=== PATIENT | male | born 1985 | race Caucasian/White ===

== ENCOUNTER 2017-06-02 20:47 | Day surgery (SDC) | payer BC, OTHER ==
[2017-06-02] MEDS ORDERED: Ondansetron 4 MG/2 ML SDV IVPUSH ONE (21:15)
[2017-06-02] MEDS ORDERED: Sodium Chloride 0.9% 1,000 ML IV ONE (21:15)
[2017-06-02] MEDS ORDERED: Ketorolac 30 MG/ML SDV IVPUSH ONE (21:15)
--- NOTE | 2017-06-02 21:20 | EDM.PDOC ---
Addendum entered and electronically signed by Donna Bianchi MD 06/02/17 23: 28: Patient states that his allergy to penicillin for his mother is that he gets hives diarrhea and stomach upset. Dr. Mota would like him to receive Flagyl and Cipro which I ordered. Original Note: <Donna Bianchi - Last Filed: 06/02/17 23:19> ED HPI GENERAL MEDICAL PROBLEM - General Chief Complaint: Abdominal Pain Stated Complaint: STOMACH PAIN Time Seen by Provider: 06/02/17 21:10 - History of Present Illness INITIAL COMMENTS - FREE TEXT/NARRATIVE: This is Dr. Bianchi dictating an addendum note as I assumed care of this patient at 2200 hrs. The patient tells me the pain is mostly localized in the right upper quadrant and does not radiate to the flank. He says that he ate chicken [employer] tonight with cheese which made the pain more severe. He said the pain did come on very suddenly and was not gradual. When asked about prior food intolerances he says he can usually eat whatever he wants and has never had this discomfort. He says that the pain is much improved after the medication but it is still there and dull fashion. He doesn't feel nauseated and has no chest pain. He has not had any recent flulike symptoms. He has had normal urine output and normal stools. On examination he has some mild tenderness on deep palpation in the right upper quadrant but not in the epigastrium or the left upper quadrant and there is no right lower quadrant tenderness. We are currently awaiting his CT scan results and I will discuss them with him and the care plan once they're available. CT scan results were discussed with the patient and significant other at bedside as well as our surgeon documentation billing clerk Dr. Mota at [id number]. He is aware that he has appendicitis and that the surgeon is coming in to discuss the plan with him. Dr Mota wanted us to give a dose of Zosyn and he is stating that he has some kind of allergy to it but he does not recall the reaction as he was a small child and his mother told him not to take it. He is currently contacting her to determine what that reaction is. I will hold antibiotics until we get that information and Dr. Mota is here. We'll plan on admitting to same day surgery for appendectomy. 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 [No Known Home Meds] 10/20/13 [History] Course - Vital Signs Last Recorded V/S: Last Vital Signs Temp 36.6 C 06/03/17 08:00 Pulse 85 06/03/17 08:00 Resp 20 06/03/17 08:00 BP 138/70 06/03/17 08:00 Pulse Ox 92 L 06/03/17 08:00 - Orders/Labs/Meds Orders: Active Orders 24 hr Category Date Time Status Patient Status [ADT] Routine ADT 06/02/17 23:47 Active Antiembolic Devices [RC] PER UNIT ROUTINE Care 06/02/17 23:49 Active RT Incentive Spirometry [RC] ASDIRECTED Care 06/02/17 23:47 Active Vital Signs [RC] Q4H Care 06/03/17 01:08 Active Regular Diet [DIET] Diet 06/03/17 Breakfast Active Abdomen Pelvis w Cont [CT] Stat Exams 06/02/17 21:15 Taken Acetaminophen/oxyCODONE [Percocet 325-5 MG] Med 06/03/17 02:51 Active 2 tab PO Q4H PRN HYDROmorphone [Dilaudid] Med 06/02/17 23:50 Active 1 mg IVPUSH Q2H PRN Ondansetron [Zofran] Med 06/03/17 02:52 Active 8 mg IVPUSH Q8H PRN Sodium Chloride 0.9% [Saline Flush] Med 06/02/17 23:47 Active 10 ml FLUSH ASDIRECTED PRN Sodium Chloride 0.9% [Saline Flush] Med 06/02/17 23:47 Active 2.5 ml FLUSH ASDIRECTED PRN Peripheral IV Insertion Adult [OM.PC] Routine Oth 06/02/17 23:47 Ordered Sequential Compression Device [OM.PC] Routine Oth 06/02/17 23:47 Ordered Resuscitation Status Routine Resus Stat 06/02/17 23:47 Ordered Medication Orders Hydromorphone HCl (Dilaudid) 1 mg IVPUSH Q2H PRN PRN Reason: Abdominal Pain Ondansetron HCl (Zofran) 8 mg IVPUSH Q8H PRN PRN Reason: Nausea/Vomiting Oxycodone/Acetaminophen (Percocet 325-5 Mg) 2 tab PO Q4H PRN PRN Reason: Abdominal Pain Last Admin: 06/03/17 07:40 Dose: 2 tab Sodium Chloride (Saline Flush) 10 ml FLUSH ASDIRECTED PRN PRN Reason: Keep Vein Open Sodium Chloride (Saline Flush) 2.5 ml FLUSH ASDIRECTED PRN PRN Reason: Keep Vein Open Labs: Laboratory Tests 06/02/17 06/02/17 06/02/17 Range/Units 21:30 21:30 22:50 WBC 17.57 H (4.0-11.0) K/uL RBC 5.25 (4.50-5.90) M/uL Hgb 16.0 (13.0-17.0) g/dL Hct 46.1 (38.0-50.0) % MCV 87.8 (80.0-98.0) fL MCH 30.5 (27.0-32.0) pg MCHC 34.7 (31.0-37.0) g/dL RDW Std Deviation 41.7 (28.0-62.0) fl RDW Coeff of [place] 13 (11.0-15.0) % Plt Count 239 (150-400) K/uL MPV 10.80 (7.40-12.00) fL Neut % (Auto) 80.3 H (48.0-80.0) % Lymph % (Auto) 12.1 L (16.0-40.0) % [place] % (Auto) 6.9 (0.0-15.0) % Eos % (Auto) 0.6 (0.0-7.0) % Baso % (Auto) 0.1 (0.0-1.5) % Neut # (Auto) 14.1 H (1.4-5.7) K/uL Lymph # (Auto) 2.1 (0.6-2.4) K/uL [place] # (Auto) 1.2 H (0.0-0.8) K/uL Eos # (Auto) 0.1 (0.0-0.7) K/uL Baso # (Auto) 0.0 (0.0-0.1) K/uL Nucleated RBC % 0.0 /100WBC Nucleated RBCs # 0 K/uL Sodium 137 (136-146) mmol/L Potassium 4.2 (3.5-5.1) mmol/L Chloride 106 (98-110) mmol/L Carbon Dioxide 22 (21-31) mmol/L BUN 12 (6.0-23.0) mg/dL Creatinine 0.9 (0.6-1.5) mg/dL Est Cr Clr Drug Dosing 132.93 mL/min Estimated GFR (MDRD) > 60.0 ml/min Glucose 115 H (60-110) mg/dL Calcium 9.2 (8.8-10.8) mg/dL Total Bilirubin 0.8 (0.1-1.5) mg/dL AST 21 (5-40) IU/L ALT 38 (8-54) IU/L Alkaline Phosphatase 74 (40-150) Total Protein 7.7 (6.0-8.0) g/dL Albumin 4.4 (3.5-5.0) g/dL Globulin 3.3 (2.0-3.5) g/dL Albumin/Globulin Ratio 1.3 (1.3-2.8) Amylase 36 (10-90) U/L Lipase 25 (7-80) U/L Urine Color YELLOW Urine Appearance CLEAR Urine pH 6.0 (5.0-8.0) Ur Specific [place] 1.010 (1.001-1.035) Urine Protein NEGATIVE (NEGATIVE) mg/dL Urine Glucose (UA) NEGATIVE (NEGATIVE) mg/dL Urine Ketones NEGATIVE (NEGATIVE) mg/dL Urine Occult Blood NEGATIVE (NEGATIVE) Urine Nitrite NEGATIVE (NEGATIVE) Urine Bilirubin NEGATIVE (NEGATIVE) Urine Urobilinogen 0.2 (<2.0) EU/dL Ur Leukocyte Esterase NEGATIVE (NEGATIVE) Urine RBC NONE SEEN (0-2/HPF) Urine WBC 0-1 (0-5/HPF) Ur Epithelial Cells NOT SEEN (NONE-FEW) Urine Bacteria RARE (NEGATIVE) Meds: Medications Generic Name Dose Route Start Last Admin Trade Name Freq PRN Reason Stop Dose Admin Hydromorphone HCl 1 mg 06/02/17 23:50 Dilaudid IVPUSH Q2H PRN Abdominal Pain Ondansetron HCl 8 mg 06/03/17 02:52 Zofran IVPUSH Q8H PRN Nausea/Vomiting Oxycodone/Acetaminophen 2 tab 06/03/17 02:51 06/03/17 07:40 Percocet 325-5 Mg PO 2 tab Q4H PRN Administration Abdominal Pain Sodium Chloride 10 ml 06/02/17 23:47 Saline Flush FLUSH ASDIRECTED PRN Keep Vein Open Sodium Chloride 2.5 ml 06/02/17 23:47 Saline Flush FLUSH ASDIRECTED PRN Keep Vein Open Discontinued Medications Generic Name Dose Route Start Last Admin Trade Name Freq PRN Reason Stop Dose Admin Bupivacaine HCl Confirm 06/03/17 00:15 Sensorcaine-Mpf 0.5% Administered 06/03/17 00:16 Dose 10 ml .ROUTE .STK-MED ONE Diphenhydramine HCl Confirm 06/03/17 00:12 Benadryl Administered 06/03/17 00:13 Dose 50 mg .ROUTE .STK-MED ONE Fentanyl Confirm 06/03/17 00:07 Sublimaze Administered 06/03/17 00:08 Dose 250 mcg .ROUTE .STK-MED ONE Fentanyl 50 mcg 06/03/17 01:08 Sublimaze IVPUSH 06/03/17 05:00 Q5M PRN Pain (severe 7-10) Fentanyl Confirm 06/03/17 01:17 Sublimaze Administered 06/03/17 01:18 Dose 100 mcg .ROUTE .STK-MED ONE Fentanyl Confirm 06/03/17 02:12 Sublimaze Administered 06/03/17 02:13 Dose 100 mcg .ROUTE .STK-MED ONE Glycopyrrolate Confirm 06/03/17 00:12 Administered 06/03/17 00:13 Dose 1 mg .ROUTE .STK-MED ONE Sodium Chloride 1,000 mls @ 999 mls/hr 06/02/17 21:15 06/02/17 21:34 Normal Saline IV 06/02/17 22:15 999 mls/hr STAT ONE Administration Ciprofloxacin/Dextrose 400 mg/ 200 mls @ 200 mls/hr 06/02/17 23:28 06/02/17 23:37 Premix IV 06/03/17 00:27 200 mls/hr ONETIME ONE Administration Metronidazole 500 mg/ Premix 100 mls @ 100 mls/hr 06/02/17 23:27 06/02/17 23: 47 IV 06/03/17 00:08 Not Given ONETIME ONE Lactated Ringer's 1,000 mls @ 125 mls/hr 06/02/17 23:45 06/02/17 23:54 Ringers, Lactated IV 125 mls/hr ASDIRECTED [place] Administration Levofloxacin/Dextrose 750 mg/ 150 mls @ 100 mls/hr 06/02/17 23:49 06/02/17 23 :58 Premix IV 06/03/17 01:18 100 mls/hr ONETIME ONE Administration Iopamidol 100 ml 06/02/17 22:54 06/02/17 23:02 Isovue Multipack-370 (76%) IVPUSH 06/02/17 22:55 100 ml ONETIME STA Administration Ketorolac Tromethamine 30 mg 06/02/17 21:15 06/02/17 21:37 Toradol IVPUSH 06/02/17 21:16 30 mg ONETIME ONE Administration Ketorolac Tromethamine Confirm 06/03/17 00:12 Toradol Administered 06/03/17 00:13 Dose 30 mg .ROUTE .STK-MED ONE Lidocaine Confirm 06/03/17 00:12 Xylocaine-Mpf 2% Administered 06/03/17 00:13 Dose 5 ml .ROUTE .STK-MED ONE Midazolam HCl Confirm 06/03/17 00:24 Versed 1 Mg/Ml Administered 06/03/17 00:25 Dose 2 mg .ROUTE .STK-MED ONE Morphine Sulfate 4 mg 06/02/17 21:54 06/02/17 22:04 Morphine IVPUSH 06/02/17 21:55 4 mg ONETIME ONE Administration Neostigmine Methylsulfate Confirm 06/03/17 00:12 Neostigmine Administered 06/03/17 00:13 Dose 5 mg .ROUTE .STK-MED ONE Ondansetron HCl 8 mg 06/02/17 21:15 06/02/17 21:35 Zofran IVPUSH 06/02/17 21:16 8 mg ONETIME ONE Administration Ondansetron HCl Confirm 06/03/17 00:12 Zofran Administered 06/03/17 00:13 Dose 4 mg .ROUTE .STK-MED ONE Propofol Confirm 06/03/17 00:07 Diprivan 20 Ml Administered 06/03/17 00:08 Dose 200 mg .ROUTE .STK-MED ONE Propofol Confirm 06/03/17 00:44 Diprivan 20 Ml Administered 06/03/17 00:45 Dose 200 mg .ROUTE .STK-MED ONE Rocuronium [place] Confirm 06/03/17 00:12 Zemuron Administered 06/03/17 00:13 Dose 100 mg .ROUTE .STK-MED ONE Succinylcholine Chloride Confirm 06/03/17 00:12 Succinylcholine In Ns Pf Administered 06/03/17 00:13 Dose 200 mg .ROUTE .STK-MED ONE Departure - Departure Time of Disposition: 23:20 Disposition: Still A Patient 30 Condition: Good Clinical Impression: Appendicitis Qualifiers: Appendicitis type: acute appendicitis Acute appendicitis type: unspecified acute appendicitis type Qualified Code(s): K35.80 - Unspecified acute appendicitis - Discharge Information - My Orders Last 24 Hours: My Active Orders 06/02/17 21:15 Abdomen Pelvis w Cont [CT] Stat - Assessment/Plan Last 24 Hours: My Active Orders 06/02/17 21:15 Abdomen Pelvis w Cont [CT] Stat <Brigette Wren E - Last Filed: 06/03/17 10:15> ED HPI GENERAL MEDICAL PROBLEM - General Source of Information: Reports: Patient History Limitations: Reports: No Limitations - History of Present Illness INITIAL COMMENTS - FREE TEXT/NARRATIVE: HISTORY AND PHYSICAL: History of present illness: Patient is a 31-year-old male who presents to the emergency room with complaints of abdominal pain, diaphoresis, and nausea. He states the symptoms started around noon today and just have not resolved. Pain started radiating across the mid abdomen left and right. As time has gone on its more concentrated in the right upper mid quadrant. He states that when he moves or takes a deep breath it is a sharp stabbing pain. Reports that he has had normal bowel movements, denies constipation. Denies blood in his stools. Denies dysuria or difficulty starting his stream. Denies any chest pain, shortness of breath, fever or chills. Review of systems: As per history of present illness and below otherwise all systems reviewed and negative. Past medical history: As per history of present illness and as reviewed below otherwise noncontributory. Surgical history: As per history of present illness and as reviewed below otherwise noncontributory. Social history: No reported history of drug or alcohol abuse. Family history: As per history of present illness and as reviewed below otherwise noncontributory. Physical exam: Gen.: Nontoxic appearing 31-year-old male. Alert and oriented. Appears in no acute distress. HEENT: Atraumatic, normocephalic, pupils reactive, negative for conjunctival pallor or scleral icterus, mucous membranes moist, throat clear, neck supple, nontender, trachea midline. Lungs: Clear to auscultation, breath sounds equal bilaterally, chest nontender. Heart: S1S2, regular, negative for clicks, rubs, or JVD. Abdomen: Soft, obese, nondistended, right upper quadrant/mid quadrant tenderness , no rebound tenderness. Negative for masses or hepatosplenomegaly. Negative for costovertebral tenderness. Pelvis: Stable nontender. Genitourinary: Deferred. Rectal: Deferred. Extremities: Atraumatic, moves all extremities per self negative for cords or calf pain. Neurovascular unremarkable. Skin: Diaphoretic. Intact with no overt lesions or rashes. Neuro: Awake, alert, oriented. Cranial nerves II through XII unremarkable. Cerebellum unremarkable. Motor and sensory unremarkable throughout. Exam nonfocal. She did not find any relief with the Toradol. Morphine was ordered at this time. I passed this patient on to Dr. Bianchi at 2200. She is aware of this case. Diagnostics: CBC, CMP, amylase, lipase, UA, CT abdomen and pelvis Therapeutics: IV fluid, Zofran, Toradol Impression: Abdominal pain Appendicitis Plan: Admitted under Dr. Mota Definitive disposition and diagnosis as appropriate pending reevaluation and review of above. Onset: Today Duration: Hour(s): Location: Reports: Abdomen Right Lower Abdomen Pain Score (Numeric/FACES): 6 Past Medical History - Past Health History Medical/Surgical History: Denies Medical/Surgical History Social & Family History - Tobacco Use Second Hand Smoke Exposure: No - Alcohol Use Days Per Week of Alcohol Use: 1 Number of Drinks Per Day: 3 Total Drinks Per Week: 3 - Recreational Drug Use Recreational Drug Use: No ED ROS GENERAL - Review of Systems Review Of Systems: ROS reveals no pertinent complaints other than HPI. ED EXAM, GI/ABD - Physical Exam Exam: See Below (See dictation) Course - Orders/Labs/Meds Labs: Laboratory Tests 06/02/17 06/02/17 06/02/17 Range/Units 21:30 21:30 22:50 WBC 17.57 H (4.0-11.0) K/uL RBC 5.25 (4.50-5.90) M/uL Hgb 16.0 (13.0-17.0) g/dL Hct 46.1 (38.0-50.0) % MCV 87.8 (80.0-98.0) fL MCH 30.5 (27.0-32.0) pg MCHC 34.7 (31.0-37.0) g/dL RDW Std Deviation 41.7 (28.0-62.0) fl RDW Coeff of [place] 13 (11.0-15.0) % Plt Count 239 (150-400) K/uL MPV 10.80 (7.40-12.00) fL Neut % (Auto) 80.3 H (48.0-80.0) % Lymph % (Auto) 12.1 L (16.0-40.0) % [place] % (Auto) 6.9 (0.0-15.0) % Eos % (Auto) 0.6 (0.0-7.0) % Baso % (Auto) 0.1 (0.0-1.5) % Neut # (Auto) 14.1 H (1.4-5.7) K/uL Lymph # (Auto) 2.1 (0.6-2.4) K/uL [place] # (Auto) 1.2 H (0.0-0.8) K/uL Eos # (Auto) 0.1 (0.0-0.7) K/uL Baso # (Auto) 0.0 (0.0-0.1) K/uL Nucleated RBC % 0.0 /100WBC Nucleated RBCs # 0 K/uL Sodium 137 (136-146) mmol/L Potassium 4.2 (3.5-5.1) mmol/L Chloride 106 (98-110) mmol/L Carbon Dioxide 22 (21-31) mmol/L BUN 12 (6.0-23.0) mg/dL Creatinine 0.9 (0.6-1.5) mg/dL Est Cr Clr Drug Dosing 132.93 mL/min Estimated GFR (MDRD) > 60.0 ml/min Glucose 115 H (60-110) mg/dL Calcium 9.2 (8.8-10.8) mg/dL Total Bilirubin 0.8 (0.1-1.5) mg/dL AST 21 (5-40) IU/L ALT 38 (8-54) IU/L Alkaline Phosphatase 74 (40-150) Total Protein 7.7 (6.0-8.0) g/dL Albumin 4.4 (3.5-5.0) g/dL Globulin 3.3 (2.0-3.5) g/dL Albumin/Globulin Ratio 1.3 (1.3-2.8) Amylase 36 (10-90) U/L Lipase 25 (7-80) U/L Urine Color YELLOW Urine Appearance CLEAR Urine pH 6.0 (5.0-8.0) Ur Specific [place] 1.010 (1.001-1.035) Urine Protein NEGATIVE (NEGATIVE) mg/dL Urine Glucose (UA) NEGATIVE (NEGATIVE) mg/dL Urine Ketones NEGATIVE (NEGATIVE) mg/dL Urine Occult Blood NEGATIVE (NEGATIVE) Urine Nitrite NEGATIVE (NEGATIVE) Urine Bilirubin NEGATIVE (NEGATIVE) Urine Urobilinogen 0.2 (<2.0) EU/dL Ur Leukocyte Esterase NEGATIVE (NEGATIVE) Urine RBC NONE SEEN (0-2/HPF) Urine WBC 0-1 (0-5/HPF) Ur Epithelial Cells NOT SEEN (NONE-FEW) Urine Bacteria RARE (NEGATIVE) Meds: Medications Generic Name Dose Route Start Last Admin Trade Name Freq PRN Reason Stop Dose Admin Hydromorphone HCl 1 mg 06/02/17 23:50 Dilaudid IVPUSH Q2H PRN Abdominal Pain Ondansetron HCl 8 mg 06/03/17 02:52 Zofran IVPUSH Q8H PRN Nausea/Vomiting Oxycodone/Acetaminophen 2 tab 06/03/17 02:51 06/03/17 07:40 Percocet 325-5 Mg PO 2 tab Q4H PRN Administration Abdominal Pain Sodium Chloride 10 ml 06/02/17 23:47 Saline Flush FLUSH ASDIRECTED PRN Keep Vein Open Sodium Chloride 2.5 ml 06/02/17 23:47 Saline Flush FLUSH ASDIRECTED PRN Keep Vein Open Discontinued Medications Generic Name Dose Route Start Last Admin Trade Name Ayse PRN Reason Stop Dose Admin Bupivacaine HCl Confirm 06/03/17 00:15 Sensorcaine-Mpf 0.5% Administered 06/03/17 00:16 Dose 10 ml .ROUTE .STK-MED ONE Diphenhydramine HCl Confirm 06/03/17 00:12 Benadryl Administered 06/03/17 00:13 Dose 50 mg .ROUTE .STK-MED ONE Fentanyl Confirm 06/03/17 00:07 Sublimaze Administered 06/03/17 00:08 Dose 250 mcg .ROUTE .STK-MED ONE Fentanyl 50 mcg 06/03/17 01:08 Sublimaze IVPUSH 06/03/17 05:00 Q5M PRN Pain (severe 7-10) Fentanyl Confirm 06/03/17 01:17 Sublimaze Administered 06/03/17 01:18 Dose 100 mcg .ROUTE .STK-MED ONE Fentanyl Confirm 06/03/17 02:12 Sublimaze Administered 06/03/17 02:13 Dose 100 mcg .ROUTE .STK-MED ONE Glycopyrrolate Confirm 06/03/17 00:12 Administered 06/03/17 00:13 Dose 1 mg .ROUTE .STK-MED ONE Sodium Chloride 1,000 mls @ 999 mls/hr 06/02/17 21:15 06/02/17 21:34 Normal Saline IV 06/02/17 22:15 999 mls/hr STAT ONE Administration Ciprofloxacin/Dextrose 400 mg/ 200 mls @ 200 mls/hr 06/02/17 23:28 06/02/17 23:37 Premix IV 06/03/17 00:27 200 mls/hr ONETIME ONE Administration Metronidazole 500 mg/ Premix 100 mls @ 100 mls/hr 06/02/17 23:27 06/02/17 23: 47 IV 06/03/17 00:08 Not Given ONETIME ONE Lactated Ringer's 1,000 mls @ 125 mls/hr 06/02/17 23:45 06/02/17 23:54 Ringers, Lactated IV 125 mls/hr ASDIRECTED [place] Administration Levofloxacin/Dextrose 750 mg/ 150 mls @ 100 mls/hr 06/02/17 23:49 06/02/17 23 :58 Premix IV 06/03/17 01:18 100 mls/hr ONETIME ONE Administration Iopamidol 100 ml 06/02/17 22:54 06/02/17 23:02 Isovue Multipack-370 (76%) IVPUSH 06/02/17 22:55 100 ml ONETIME STA Administration Ketorolac Tromethamine 30 mg 06/02/17 21:15 06/02/17 21:37 Toradol IVPUSH 06/02/17 21:16 30 mg ONETIME ONE Administration Ketorolac Tromethamine Confirm 06/03/17 00:12 Toradol Administered 06/03/17 00:13 Dose 30 mg .ROUTE .STK-MED ONE Lidocaine Confirm 06/03/17 00:12 Xylocaine-Mpf 2% Administered 06/03/17 00:13 Dose 5 ml .ROUTE .STK-MED ONE Midazolam HCl Confirm 06/03/17 00:24 Versed 1 Mg/Ml Administered 06/03/17 00:25 Dose 2 mg .ROUTE .STK-MED ONE Morphine Sulfate 4 mg 06/02/17 21:54 06/02/17 22:04 Morphine IVPUSH 06/02/17 21:55 4 mg ONETIME ONE Administration Neostigmine Methylsulfate Confirm 06/03/17 00:12 Neostigmine Administered 06/03/17 00:13 Dose 5 mg .ROUTE .STK-MED ONE Ondansetron HCl 8 mg 06/02/17 21:15 06/02/17 21:35 Zofran IVPUSH 06/02/17 21:16 8 mg ONETIME ONE Administration Ondansetron HCl Confirm 06/03/17 00:12 Zofran Administered 06/03/17 00:13 Dose 4 mg .ROUTE .STK-MED ONE Propofol Confirm 06/03/17 00:07 Diprivan 20 Ml Administered 06/03/17 00:08 Dose 200 mg .ROUTE .STK-MED ONE Propofol Confirm 06/03/17 00:44 Diprivan 20 Ml Administered 06/03/17 00:45 Dose 200 mg .ROUTE .STK-MED ONE Rocuronium [place] Confirm 06/03/17 00:12 Zemuron Administered 06/03/17 00:13 Dose 100 mg .ROUTE .STK-MED ONE Succinylcholine Chloride Confirm 06/03/17 00:12 Succinylcholine In Ns Pf Administered 06/03/17 00:13 Dose 200 mg .ROUTE .STK-MED ONE Departure - Departure Condition: Good
[2017-06-02] MEDS ORDERED: Morphine 4 MG/ML Syringe IVPUSH ONE (21:54)
[2017-06-02 22:02] LABS: CHLORIDE,CL 106 mmol/L (98-110); SODIUM,NA 137 mmol/L (136-146)
[2017-06-02] MEDS ORDERED: Iopamidol 755 MG/ML 500 ML Multipack Bottle IVPUSH STA (22:54)
[2017-06-02] MEDS ORDERED: Ciprofloxacin in D5W 400 MG in Premix Bag 1 BAG IV ONE ×2 (23:28)
[2017-06-02] MEDS: metroNIDAZOLE/Normal Saline 500 MG in Premix Bag 1 BAG IV ONE ×2 (23:40→23:47)
[2017-06-02] MEDS ORDERED: Lactated Ringers 1,000 ML IV SCH (23:45)
[2017-06-02] MEDS ORDERED: Sodium Chloride 0.9% 10 ML Syringe FLUSH PRN (23:47)
[2017-06-02] MEDS ORDERED: Sodium Chloride 0.9% 2.5 ML Syringe FLUSH PRN (23:47)
[2017-06-02] MEDS ORDERED: Levofloxacin/Dextrose 5%-Water 750 MG in Premix Bag 1 BAG IV ONE (23:49)
[2017-06-02] MEDS ORDERED: HYDROmorphone 1 MG/ML Syringe IVPUSH PRN (23:50)
--- NOTE | 2017-06-03 00:02 | PCM.HP ---
H&P History of Present Illness - General Date of Service: 06/02/17 Admit Problem/Dx: Admission Diagnosis/Problem Admission Diagnosis/Problem Appendicitis Source of Information: Patient History Limitations: Reports: No Limitations - History of Present Illness Initial Comments - Free Text/Narative: Patient is a 31 year old male who presents to the ER with abdominal pain since noon today. It was generalized at first and felt more like a "stomach bug". He ate supper this evening at 6pm and the pain became worse and located more on the right side. He denies fever, chills, or vomiting but complains of nausea and diaphoresis. He had a leukocytosis of 17K and a CT scan showed acute appendicitis. Right Lower Abdomen Pain Score (Numeric/FACES): 5 - Related Data Allergies/Adverse Reactions: Allergies Allergy/AdvReac Type Severity Reaction Status Date / Time amoxicillin trihydrate Allergy Cannot Verified 06/02/17 23:53 [From Augmentin] Remember cefaclor [From Ceclor] Allergy Cannot Verified 06/02/17 23:53 Remember ciprofloxacin [From Cipro] Allergy Redness Verified 06/02/17 23:53 potassium clavulanate Allergy Cannot Verified 06/02/17 23:53 [From Augmentin] Remember Home Medications: Home Meds . [No Known Home Meds] 10/20/13 [History] Past Medical History - Past Health History Medical/Surgical History: Denies Medical/Surgical History HEENT History: Reports: Other (See Below) (Oral surgery) - Infectious Disease History Infectious Disease History: Reports: Chicken Pox - Past Surgical History HEENT Surgical History: Reports: Oral Surgery Social & Family History - Family History Family Medical History: Noncontributory - Tobacco Use Smoking Status *Q: Never Smoker Second Hand Smoke Exposure: No - Caffeine Use Caffeine Use: Reports: None - Alcohol Use Days Per Week of Alcohol Use: 1 Number of Drinks Per Day: 3 Total Drinks Per Week: 3 - Recreational Drug Use Recreational Drug Use: No H&P Review of Systems - Review of Systems: Review Of Systems: ROS reveals no pertinent complaints other than HPI. Exam - Exam Exam: See Below - Vital Signs Vital Signs: Last Vital Signs Temp 36.5 C 06/02/17 23:42 Pulse 68 06/02/17 23:42 Resp 18 06/02/17 23:42 BP 138/73 06/02/17 23:42 Pulse Ox 96 06/02/17 23:42 Weight: 158 kg - Exam General: Alert, Oriented Neck: Supple, Trachea Midline Lungs: Clear to Auscultation, Normal Respiratory Effort Cardiovascular: Regular Rate, Regular Rhythm GI/Abdominal Exam: Soft, No Organomegaly, No Distention, Tender (mild tenderness along RLQ ). No: Rigid, Rebound - Patient Data Lab Results Last 24 hrs: Laboratory Results - last 24 hr 06/02/17 06/02/17 06/02/17 Range/Units 21:30 21:30 22:50 WBC 17.57 H (4.0-11.0) K/uL RBC 5.25 (4.50-5.90) M/uL Hgb 16.0 (13.0-17.0) g/dL Hct 46.1 (38.0-50.0) % MCV 87.8 (80.0-98.0) fL MCH 30.5 (27.0-32.0) pg MCHC 34.7 (31.0-37.0) g/dL RDW Std Deviation 41.7 (28.0-62.0) fl RDW Coeff of [place] 13 (11.0-15.0) % Plt Count 239 (150-400) K/uL MPV 10.80 (7.40-12.00) fL Neut % (Auto) 80.3 H (48.0-80.0) % Lymph % (Auto) 12.1 L (16.0-40.0) % [place] % (Auto) 6.9 (0.0-15.0) % Eos % (Auto) 0.6 (0.0-7.0) % Baso % (Auto) 0.1 (0.0-1.5) % Neut # (Auto) 14.1 H (1.4-5.7) K/uL Lymph # (Auto) 2.1 (0.6-2.4) K/uL [place] # (Auto) 1.2 H (0.0-0.8) K/uL Eos # (Auto) 0.1 (0.0-0.7) K/uL Baso # (Auto) 0.0 (0.0-0.1) K/uL Nucleated RBC % 0.0 /100WBC Nucleated RBCs # 0 K/uL Sodium 137 (136-146) mmol/L Potassium 4.2 (3.5-5.1) mmol/L Chloride 106 (98-110) mmol/L Carbon Dioxide 22 (21-31) mmol/L BUN 12 (6.0-23.0) mg/dL Creatinine 0.9 (0.6-1.5) mg/dL Est Cr Clr Drug Dosing 132.93 mL/min Estimated GFR (MDRD) > 60.0 ml/min Glucose 115 H (60-110) mg/dL Calcium 9.2 (8.8-10.8) mg/dL Total Bilirubin 0.8 (0.1-1.5) mg/dL AST 21 (5-40) IU/L ALT 38 (8-54) IU/L Alkaline Phosphatase 74 (40-150) Total Protein 7.7 (6.0-8.0) g/dL Albumin 4.4 (3.5-5.0) g/dL Globulin 3.3 (2.0-3.5) g/dL Albumin/Globulin Ratio 1.3 (1.3-2.8) Amylase 36 (10-90) U/L Lipase 25 (7-80) U/L Urine Color YELLOW Urine Appearance CLEAR Urine pH 6.0 (5.0-8.0) Ur Specific [place] 1.010 (1.001-1.035) Urine Protein NEGATIVE (NEGATIVE) mg/dL Urine Glucose (UA) NEGATIVE (NEGATIVE) mg/dL Urine Ketones NEGATIVE (NEGATIVE) mg/dL Urine Occult Blood NEGATIVE (NEGATIVE) Urine Nitrite NEGATIVE (NEGATIVE) Urine Bilirubin NEGATIVE (NEGATIVE) Urine Urobilinogen 0.2 (<2.0) EU/dL Ur Leukocyte Esterase NEGATIVE (NEGATIVE) Urine RBC NONE SEEN (0-2/HPF) Urine WBC 0-1 (0-5/HPF) Ur Epithelial Cells NOT SEEN (NONE-FEW) Urine Bacteria RARE (NEGATIVE) Result Diagrams: 06/02/17 21:30 06/02/17 21:30 *Q Meaningful Use (ADM) - VTE *Q VTE Criteria *Q: - Stroke *Q Stroke Criteria *Q: - AMI *Q AMI Criteria *Q: - Problem List (1) Appendicitis SNOMED Code(s): 06565936 ICD Code: K37 - UNSPECIFIED APPENDICITIS Status: Acute Current Visit: Yes Qualifiers: Appendicitis type: acute appendicitis Acute appendicitis type: unspecified acute appendicitis type Qualified Code(s): K35.80 - Unspecified acute appendicitis Problem List Initiated/Reviewed/Updated: Yes Orders Last 24hrs: Active Orders 24 hr Category Date Time Status Patient Status [ADT] Routine ADT 06/02/17 23:47 Ordered Antiembolic Devices [RC] PER UNIT ROUTINE Care 06/02/17 23:49 Ordered RT Incentive Spirometry [RC] ASDIRECTED Care 06/02/17 23:47 Ordered Verify Patient Consent Obtain [RC] ASDIRECTED Care 06/02/17 23:47 Ordered Nothing Per Oral Diet [DIET] Diet 06/02/17 Dinner Ordered Abdomen Pelvis w Cont [CT] Stat Exams 06/02/17 21:15 Taken Ciprofloxacin in D5W [Cipro in D5W 400 MG/200 ML] 400 Med 06/02/17 23:28 Active mg Premix Bag 1 bag IV ONETIME HYDROmorphone [Dilaudid] Med 06/02/17 23:50 Ordered 1 mg IVPUSH Q2H PRN Lactated Ringers @ 125 MLS/HR(1000ml) Med 06/02/17 23:45 Ordered Lactated Ringers [Ringers, Lactated] 1,000 ml IV ASDIRECTED Levofloxacin/Dextrose 5%-Water [Levaquin in D5W 750 MG/ Med 06/02/17 23:49 Ordered 150 ML] 750 mg Premix Bag 1 bag IV ONETIME Sodium Chloride 0.9% [Saline Flush] Med 06/02/17 23:47 Ordered 10 ml FLUSH ASDIRECTED PRN Sodium Chloride 0.9% [Saline Flush] Med 06/02/17 23:47 Ordered 2.5 ml FLUSH ASDIRECTED PRN metroNIDAZOLE/Normal Saline [Flagyl 500 MG in NS 100 ML Med 06/02/17 23:27 Active ] 500 mg Premix Bag 1 bag IV ONETIME Peripheral IV Insertion Adult [OM.PC] Routine Oth 06/02/17 23:47 Ordered Sequential Compression Device [OM.PC] Routine Oth 06/02/17 23:47 Ordered Resuscitation Status Routine Resus Stat 06/02/17 23:47 Ordered Medication Orders Hydromorphone HCl (Dilaudid) 1 mg IVPUSH Q2H PRN PRN Reason: Abdominal Pain Ciprofloxacin/Dextrose 400 mg/ (Premix) 200 mls @ 200 mls/hr IV ONETIME ONE Stop: 06/03/17 00:27 Last Admin: 06/02/17 23:37 Dose: 200 mls/hr Metronidazole 500 mg/ Premix 100 mls @ 100 mls/hr IV ONETIME ONE Stop: 06/03/17 00:26 Last Admin: 06/02/17 23:47 Dose: Lactated Ringer's (Ringers, Lactated) 1,000 mls @ 125 mls/hr IV ASDIRECTED [facility] Last Admin: 06/02/17 23:54 Dose: 125 mls/hr Levofloxacin/Dextrose 750 mg/ (Premix) 150 mls @ 100 mls/hr IV ONETIME ONE Stop: 06/03/17 01:18 Sodium Chloride (Saline Flush) 10 ml FLUSH ASDIRECTED PRN PRN Reason: Keep Vein Open Sodium Chloride (Saline Flush) 2.5 ml FLUSH ASDIRECTED PRN PRN Reason: Keep Vein Open Assessment/Plan Comment:: The patient and I discussed the pathophysiology of acute appendicitis. The treatment is removal of the appendix. I explained that I would attempt this laparoscopically. I will convert to open if I cannot do this safely. We discussed the risks including bleeding, infection or damage to surrounding structures. He verbalized understanding and wishes to proceed. He should stay npo, start LR @ 125ml/hr, and will give him levaquin since he has a PCN allergy and he developed redness with infusion of ciprofloxacin.
[2017-06-03] MEDS ORDERED: fentaNYL 250 MCG/5 ML SDV ONE (00:07)
[2017-06-03] MEDS ORDERED: Propofol 200 MG/20 ML SDV ONE ×2 (00:07→00:44)
[2017-06-03] MEDS ORDERED: Lidocaine 2% 5 ML SDV ONE (00:12)
[2017-06-03] MEDS ORDERED: Ondansetron 4 MG/2 ML SDV ONE (00:12)
[2017-06-03] MEDS ORDERED: Neostigmine Methylsulfate 1 MG/ML 5 ML Syringe ONE (00:12)
[2017-06-03] MEDS ORDERED: Ketorolac 30 MG/ML SDV ONE (00:12)
[2017-06-03] MEDS ORDERED: diphenhydrAMINE 50 MG/ML SDV ONE (00:12)
[2017-06-03] MEDS ORDERED: Succinylcholine/Normal Saline 200 MG/10 ML Syringe ONE (00:12)
[2017-06-03] MEDS ORDERED: Rocuronium 10 MG/ML 10 ML Syringe ONE (00:12)
[2017-06-03] MEDS ORDERED: Bupivacaine 0.5% 10 ML SDV ONE (00:15)
[2017-06-03] MEDS ORDERED: Midazolam 1 MG/ML 2 ML SDV ONE (00:24)
--- NOTE | 2017-06-03 01:07 | PCM.PREANE ---
Preanesthetic Assessment - Procedure Proposed Procedure: appendectomy - Anesthesia/Transfusion/Family Hx Anesthesia History: Prior Anesthesia Without Reaction (wisdom teeth, oral surgery) Family History of Anesthesia Reaction: No - Review of Systems General: No Symptoms Pulmonary: No Symptoms, Other (environmental allergies) Cardiovascular: No Symptoms Gastrointestinal: No Symptoms, Abdominal Pain Neurological: No Symptoms Other: Reports: None (hx of chewing tobacco), Thyroid Problems - Physical Assessment NPO Status Date: 06/02/17 NPO Status Time: 20:30 (water) O2 Sat by Pulse Oximetry: 96 Respiratory Rate: 18 Vital Signs: Last Vital Signs Temp 36.5 C 06/02/17 23:42 Pulse 68 06/02/17 23:42 Resp 18 06/02/17 23:42 BP 138/73 06/02/17 23:42 Pulse Ox 96 06/02/17 23:42 Height: 1.83 m Weight: 158 kg ASA Class: 2E Mental Status: Alert & Oriented x3 Airway Class: Mallampati = 1 Dentition: Reports: Normal Dentition, Blackwell(s) (front upper two) Thyro-Mental Finger Breadths: 4 Mouth Opening Finger Breadths: 4 (bearded) ROM/Head Extension: Full Lungs: Clear to Auscultation, Normal Respiratory Effort Cardiovascular: Regular Rate, Regular Rhythm - Lab Values: Laboratory Last Values WBC 17.57 K/uL (4.0-11.0) H 06/02/17 21:30 RBC 5.25 M/uL (4.50-5.90) 06/02/17 21:30 Hgb 16.0 g/dL (13.0-17.0) 06/02/17 21:30 Hct 46.1 % (38.0-50.0) 06/02/17 21:30 MCV 87.8 fL (80.0-98.0) 06/02/17 21:30 MCH 30.5 pg (27.0-32.0) 06/02/17 21:30 MCHC 34.7 g/dL (31.0-37.0) 06/02/17 21:30 RDW Std Deviation 41.7 fl (28.0-62.0) 06/02/17 21:30 RDW Coeff of [place] 13 % (11.0-15.0) 06/02/17 21:30 Plt Count 239 K/uL (150-400) 06/02/17 21:30 MPV 10.80 fL (7.40-12.00) 06/02/17 21:30 Neut % (Auto) 80.3 % (48.0-80.0) H 06/02/17 21:30 Lymph % (Auto) 12.1 % (16.0-40.0) L 06/02/17 21:30 [place] % (Auto) 6.9 % (0.0-15.0) 06/02/17 21:30 Eos % (Auto) 0.6 % (0.0-7.0) 06/02/17 21:30 Baso % (Auto) 0.1 % (0.0-1.5) 06/02/17 21:30 Neut # (Auto) 14.1 K/uL (1.4-5.7) H 06/02/17 21:30 Lymph # (Auto) 2.1 K/uL (0.6-2.4) 06/02/17 21:30 [place] # (Auto) 1.2 K/uL (0.0-0.8) H 06/02/17 21:30 Eos # (Auto) 0.1 K/uL (0.0-0.7) 06/02/17 21:30 Baso # (Auto) 0.0 K/uL (0.0-0.1) 06/02/17 21:30 Nucleated RBC % 0.0 /100WBC 06/02/17 21:30 Nucleated RBCs # 0 K/uL 06/02/17 21:30 Sodium 137 mmol/L (136-146) 06/02/17 21:30 Potassium 4.2 mmol/L (3.5-5.1) 06/02/17 21:30 Chloride 106 mmol/L (98-110) 06/02/17 21:30 Carbon Dioxide 22 mmol/L (21-31) 06/02/17 21:30 BUN 12 mg/dL (6.0-23.0) 06/02/17 21:30 Creatinine 0.9 mg/dL (0.6-1.5) 06/02/17 21:30 Est Cr Clr Drug Dosing 132.93 mL/min 06/02/17 21:30 Estimated GFR (MDRD) > 60.0 ml/min 06/02/17 21:30 Glucose 115 mg/dL (60-110) H 06/02/17 21:30 Calcium 9.2 mg/dL (8.8-10.8) 06/02/17 21:30 Total Bilirubin 0.8 mg/dL (0.1-1.5) 06/02/17 21:30 AST 21 IU/L (5-40) 06/02/17 21:30 ALT 38 IU/L (8-54) 06/02/17 21:30 Alkaline Phosphatase 74 (40-150) 06/02/17 21:30 Total Protein 7.7 g/dL (6.0-8.0) 06/02/17 21:30 Albumin 4.4 g/dL (3.5-5.0) 06/02/17 21:30 Globulin 3.3 g/dL (2.0-3.5) 06/02/17 21:30 Albumin/Globulin Ratio 1.3 (1.3-2.8) 06/02/17 21:30 Amylase 36 U/L (10-90) 06/02/17 21:30 Lipase 25 U/L (7-80) 06/02/17 21:30 Urine Color YELLOW 06/02/17 22:50 Urine Appearance CLEAR 06/02/17 22:50 Urine pH 6.0 (5.0-8.0) 06/02/17 22:50 Ur Specific [place] 1.010 (1.001-1.035) 06/02/17 22:50 Urine Protein NEGATIVE mg/dL (NEGATIVE) 06/02/17 22:50 Urine Glucose (UA) NEGATIVE mg/dL (NEGATIVE) 06/02/17 22:50 Urine Ketones NEGATIVE mg/dL (NEGATIVE) 06/02/17 22:50 Urine Occult Blood NEGATIVE (NEGATIVE) 06/02/17 22:50 Urine Nitrite NEGATIVE (NEGATIVE) 06/02/17 22:50 Urine Bilirubin NEGATIVE (NEGATIVE) 06/02/17 22:50 Urine Urobilinogen 0.2 EU/dL (<2.0) 06/02/17 22:50 Ur Leukocyte Esterase NEGATIVE (NEGATIVE) 06/02/17 22:50 Urine RBC NONE SEEN (0-2/HPF) 06/02/17 22:50 Urine WBC 0-1 (0-5/HPF) 06/02/17 22:50 Ur Epithelial Cells NOT SEEN (NONE-FEW) 06/02/17 22:50 Urine Bacteria RARE (NEGATIVE) 06/02/17 22:50 - Allergies Allergies/Adverse Reactions: Allergies Allergy/AdvReac Type Severity Reaction Status Date / Time amoxicillin trihydrate Allergy Cannot Verified 06/02/17 23:53 [From Augmentin] Remember cefaclor [From Ceclor] Allergy Cannot Verified 06/02/17 23:53 Remember ciprofloxacin [From Cipro] Allergy Redness Verified 06/02/17 23:53 potassium clavulanate Allergy Cannot Verified 06/02/17 23:53 [From Augmentin] Remember - Blood Blood Available: No Product(s) Available: None - Acknowledgements Anesthesia Type Planned: General Anesthesia Pt an Appropriate Candidate for the Planned Anesthesia: Yes Alternatives and Risks of Anesthesia Discussed w Pt/Guardian: Yes Pt/Guardian Understands and Agrees with Anesthesia Plan: Yes PreAnesthesia Questionnaire - Past Health History Medical/Surgical History: Denies Medical/Surgical History HEENT History: Reports: Other (See Below) (Oral surgery) - Infectious Disease History Infectious Disease History: Reports: Chicken Pox - Past Surgical History HEENT Surgical History: Reports: Oral Surgery - SUBSTANCE USE Smoking Status *Q: Never Smoker Second Hand Smoke Exposure: No Days Per Week of Alcohol Use: 1 Number of Drinks Per Day: 3 Total Drinks Per Week: 3 Recreational Drug Use History: No - HOME MEDS Home Medications: Home Meds . [No Known Home Meds] 10/20/13 [History] - CURRENT (IN HOUSE) MEDS Current Meds: Current Medications Hydromorphone HCl (Dilaudid) 1 mg IVPUSH Q2H PRN PRN Reason: Abdominal Pain Lactated Ringer's (Ringers, Lactated) 1,000 mls @ 125 mls/hr IV ASDIRECTED [facility] Last Admin: 06/02/17 23:54 Dose: 125 mls/hr Levofloxacin/Dextrose 750 mg/ (Premix) 150 mls @ 100 mls/hr IV ONETIME ONE Stop: 06/03/17 01:18 Last Admin: 06/02/17 23:58 Dose: 100 mls/hr Sodium Chloride (Saline Flush) 10 ml FLUSH ASDIRECTED PRN PRN Reason: Keep Vein Open Sodium Chloride (Saline Flush) 2.5 ml FLUSH ASDIRECTED PRN PRN Reason: Keep Vein Open Discontinued Medications Bupivacaine HCl (Sensorcaine-Mpf 0.5%) Confirm Administered Dose 10 ml .ROUTE .STK-MED ONE Stop: 06/03/17 00:16 Diphenhydramine HCl (Benadryl) Confirm Administered Dose 50 mg .ROUTE .STK-MED ONE Stop: 06/03/17 00:13 Fentanyl (Sublimaze) Confirm Administered Dose 250 mcg .ROUTE .STK-MED ONE Stop: 06/03/17 00:08 Glycopyrrolate () Confirm Administered Dose 1 mg .ROUTE .STK-MED ONE Stop: 06/03/17 00:13 Sodium Chloride (Normal Saline) 1,000 mls @ 999 mls/hr IV STAT ONE Stop: 06/02/17 22:15 Last Admin: 06/02/17 21:34 Dose: 999 mls/hr Ciprofloxacin/Dextrose 400 mg/ (Premix) 200 mls @ 200 mls/hr IV ONETIME ONE Stop: 06/03/17 00:27 Last Admin: 06/02/17 23:37 Dose: 200 mls/hr Metronidazole 500 mg/ Premix 100 mls @ 100 mls/hr IV ONETIME ONE Stop: 06/03/17 00:08 Last Admin: 06/02/17 23:47 Dose: Not Given Iopamidol (Isovue Multipack-370 (76%)) 100 ml IVPUSH ONETIME STA Stop: 06/02/17 22:55 Last Admin: 06/02/17 23:02 Dose: 100 ml Ketorolac Tromethamine (Toradol) 30 mg IVPUSH ONETIME ONE Stop: 06/02/17 21:16 Last Admin: 06/02/17 21:37 Dose: 30 mg Ketorolac Tromethamine (Toradol) Confirm Administered Dose 30 mg .ROUTE .STK- MED ONE Stop: 06/03/17 00:13 Lidocaine (Xylocaine-Mpf 2%) Confirm Administered Dose 5 ml .ROUTE .STK-MED ONE Stop: 06/03/17 00:13 Midazolam HCl (Versed 1 Mg/Ml) Confirm Administered Dose 2 mg .ROUTE .STK-MED ONE Stop: 06/03/17 00:25 Morphine Sulfate (Morphine) 4 mg IVPUSH ONETIME ONE Stop: 06/02/17 21:55 Last Admin: 06/02/17 22:04 Dose: 4 mg Neostigmine Methylsulfate (Neostigmine) Confirm Administered Dose 5 mg .ROUTE .STK-MED ONE Stop: 06/03/17 00:13 Ondansetron HCl (Zofran) 8 mg IVPUSH ONETIME ONE Stop: 06/02/17 21:16 Last Admin: 06/02/17 21:35 Dose: 8 mg Ondansetron HCl (Zofran) Confirm Administered Dose 4 mg .ROUTE .STK-MED ONE Stop: 06/03/17 00:13 Propofol (Diprivan 20 Ml) Confirm Administered Dose 200 mg .ROUTE .STK-MED ONE Stop: 06/03/17 00:08 Propofol (Diprivan 20 Ml) Confirm Administered Dose 200 mg .ROUTE .STK-MED ONE Stop: 06/03/17 00:45 Rocuronium [place] (Zemuron) Confirm Administered Dose 100 mg .ROUTE .STK-MED ONE Stop: 06/03/17 00:13 Succinylcholine Chloride (Succinylcholine In Ns Pf) Confirm Administered Dose 200 mg .ROUTE .STK-MED ONE Stop: 06/03/17 00:13
[2017-06-03] MEDS ORDERED: fentaNYL 100 MCG/2 ML SDV IVPUSH PRN (01:08)
[2017-06-03] MEDS ORDERED: fentaNYL 100 MCG/2 ML SDV ONE ×2 (01:17→02:12)
--- NOTE | 2017-06-03 02:44 | PCM.OPNOTE ---
- General Post-Op/Procedure Note Date of Surgery/Procedure: 06/03/17 Operative Procedure(s): Laparoscopic appendectomy Findings: Acutely inflamed and enlarged appendix. Not perforated. Pre Op Diagnosis: Appendicitis Post-Op Diagnosis: same Anesthesia Technique: General ET Tube Primary Surgeon: Marilin Mota Fluid Replacement, Intraop: 1,300 Output, Urine Amount: 400 EBL in mLs: 5 Condition: Fair
[2017-06-03] MEDS ORDERED: Acetaminophen/oxyCODONE 325-5 MG Tab PO PRN (02:51)
[2017-06-03] MEDS ORDERED: Ondansetron 4 MG/2 ML SDV IVPUSH PRN (02:52)
--- NOTE | 2017-06-03 03:04 | PCM.POSTAN ---
POST ANESTHESIA ASSESSMENT - MENTAL STATUS Mental Status: Alert, Oriented - VITAL SIGNS Pulse Rate: 84 SaO2: 96 Resp Rate: 27 Blood Pressure: 150/69 - RESPIRATORY Respiratory Status: Respiratory Rate WNL, Airway Patent - CARDIOVASCULAR CV Status: Pulse Rate WNL, Blood Pressure Stable - GASTROINTESTINAL GI Status: No Symptoms - PAIN Pain Score: 2 - POST OP HYDRATION Hydration Status: Adequate & Stable
--- NOTE | 2017-06-03 04:14 | OR ---
SURGEON: ALLY SWEENEY MD DATE OF PROCEDURE: 06/03/2017 PREOPERATIVE DIAGNOSIS: Acute appendicitis. POSTOPERATIVE DIAGNOSIS: Acute appendicitis. PROCEDURE PERFORMED: Laparoscopic appendectomy. ANESTHESIA: General endotracheal anesthesia. FLUIDS: 1300 mL. URINE OUTPUT: 400 mL. ESTIMATED BLOOD LOSS: 5 mL. FINDINGS: Acutely enlarged and inflamed appendix. No evidence of perforation. COMPLICATIONS: None. INDICATIONS: The patient is a 31-year-old male, who presents to the emergency room with abdominal pain since noon. It started out generalized and felt like he had stomach flu. The pain became worse, more constant and located in the right side. He presented to the emergency room and was found to have leukocytosis of 17,000. A CT of the abdomen and pelvis showed an acutely enlarged and inflamed appendix. This was consistent with acute appendicitis. The patient and his and I discussed the pathophysiology of acute appendicitis. The treatment for this is removal of the appendix. I discussed the laparoscopic and open procedures. Should I be able to perform this laparoscopically, I will convert to open. We discussed the risks, including bleeding, infection, or damage to surrounding structures including perforation. The patient verbalized understanding and wishes to proceed. PROCEDURE IN DETAIL: The patient was brought into the OR and placed on the OR table in supine position. A time-out was completed verifying the patient's name, age, date of , allergies, and procedure to be performed. General endotracheal anesthesia was induced. The left arm was tucked to the patient's side and a Wood catheter placed. The abdomen was shaved and prepped and draped in usual standard fashion. A 5 mm optical trocar was used to gain access into the abdomen in the left upper quadrant approximately 4 fingerbreadths below the left subcostal margin along the mid axillary line. The area was first anesthetized with 0.5% Marcaine plain. All layers of the abdominal wall were visualized upon entry. The abdomen was insufflated. A 5 mm 30-degree scope was inserted in the abdomen and I inspected the area underneath my initial trocar placement. This area appeared free of any damage. A 5 mm trocar was then placed just lateral to the umbilicus on the left side. This was placed under direct visualization. The patient had a large amount of visceral fat. I placed the patient into Trendelenburg position and attempted to sweep the bowel cranially and medially to allow identification of the colon. I was unable to do so. Given the patient's large body habitus, I placed my 12 mm trocar under direct visualization along the lower midline. Using atraumatic graspers, I ran the bowel until I reached the ascending colon. I followed the tenia down the level of the cecum and identified an inflamed appearing appendix. This was lifted towards the abdominal wall. The patient had a large amount of appendiceal fat and this was grossly edematous and inflamed. A Harmonic Scalpel was used to dissect along the border of the appendix from distal to proximal to takedown the appendiceal mesentery. This was quite difficult since he had a large amount of visceral fat giving me very little domain to work in. I meticulously dissected down to the level of the base of the appendix. Once I had cleared away all of the appendiceal mesentery and surrounding attachments from the base of the appendix, it was stapled and transected with a 45 mm blue load on an endoscopic stapling device. The appendix was then placed in an EndoCatch bag and removed through the 12 mm port site. My operative field was then inspected and the staple line was intact and there was no damage to any surrounding structures. The abdomen was irrigated with 500 mL of normal saline until it ran clear. The 12 mm port site was closed with a Grabiel-Jason device using an 0 Vicryl suture. This closed the fascia completely. The 5 mm trocars were then removed under direct visualization and the abdomen allowed to de-sufflate. The 12 mm trocar site was closed with interrupted 3-0 Vicryl in the subcutaneous fat and running 4-0 Monocryl stitch. The two other 5 mm trocar sites were closed with one running 4-0 Monocryl stitch at the umbilical port site and interrupted 4-0 Monocryl sutures in the left upper quadrant port site. Steri-Strips and sterile dressings were applied. The patient tolerated the procedure well and taken to PACU in stable condition. JEREMIAS ALFARO /[id number]
--- NOTE | 2017-06-03 10:31 | PCM.SURGPN ---
- General Info Date of Service: 06/03/17 Date of Surgery/Procedure: 06/03/17 POD#: 0 Post-Op Diagnosis: appendicitis Functional Status: Reports: Pain Controlled, Tolerating Diet, Ambulating, Urinating - Review of Systems General: Reports: No Symptoms Gastrointestinal: Reports: No Symptoms - Patient Data Vitals - Most Recent: Last Vital Signs Temp 36.6 C 06/03/17 08:00 Pulse 85 06/03/17 08:00 Resp 20 06/03/17 08:00 BP 138/70 06/03/17 08:00 Pulse Ox 92 L 06/03/17 08:00 Weight - Most Recent: 159.5 kg I&O - Last 24 Hours: Intake & Output 06/02/17 06/03/17 06/03/17 22:59 06:59 14:59 Intake Total 3700 Output Total 1200 Balance 2500 Lab Results Last 24 Hrs: Laboratory Results - last 24 hr 06/02/17 06/02/17 06/02/17 Range/Units 21:30 21:30 22:50 WBC 17.57 H (4.0-11.0) K/uL RBC 5.25 (4.50-5.90) M/uL Hgb 16.0 (13.0-17.0) g/dL Hct 46.1 (38.0-50.0) % MCV 87.8 (80.0-98.0) fL MCH 30.5 (27.0-32.0) pg MCHC 34.7 (31.0-37.0) g/dL RDW Std Deviation 41.7 (28.0-62.0) fl RDW Coeff of [place] 13 (11.0-15.0) % Plt Count 239 (150-400) K/uL MPV 10.80 (7.40-12.00) fL Neut % (Auto) 80.3 H (48.0-80.0) % Lymph % (Auto) 12.1 L (16.0-40.0) % [place] % (Auto) 6.9 (0.0-15.0) % Eos % (Auto) 0.6 (0.0-7.0) % Baso % (Auto) 0.1 (0.0-1.5) % Neut # (Auto) 14.1 H (1.4-5.7) K/uL Lymph # (Auto) 2.1 (0.6-2.4) K/uL [place] # (Auto) 1.2 H (0.0-0.8) K/uL Eos # (Auto) 0.1 (0.0-0.7) K/uL Baso # (Auto) 0.0 (0.0-0.1) K/uL Nucleated RBC % 0.0 /100WBC Nucleated RBCs # 0 K/uL Sodium 137 (136-146) mmol/L Potassium 4.2 (3.5-5.1) mmol/L Chloride 106 (98-110) mmol/L Carbon Dioxide 22 (21-31) mmol/L BUN 12 (6.0-23.0) mg/dL Creatinine 0.9 (0.6-1.5) mg/dL Est Cr Clr Drug Dosing 132.93 mL/min Estimated GFR (MDRD) > 60.0 ml/min Glucose 115 H (60-110) mg/dL Calcium 9.2 (8.8-10.8) mg/dL Total Bilirubin 0.8 (0.1-1.5) mg/dL AST 21 (5-40) IU/L ALT 38 (8-54) IU/L Alkaline Phosphatase 74 (40-150) Total Protein 7.7 (6.0-8.0) g/dL Albumin 4.4 (3.5-5.0) g/dL Globulin 3.3 (2.0-3.5) g/dL Albumin/Globulin Ratio 1.3 (1.3-2.8) Amylase 36 (10-90) U/L Lipase 25 (7-80) U/L Urine Color YELLOW Urine Appearance CLEAR Urine pH 6.0 (5.0-8.0) Ur Specific [place] 1.010 (1.001-1.035) Urine Protein NEGATIVE (NEGATIVE) mg/dL Urine Glucose (UA) NEGATIVE (NEGATIVE) mg/dL Urine Ketones NEGATIVE (NEGATIVE) mg/dL Urine Occult Blood NEGATIVE (NEGATIVE) Urine Nitrite NEGATIVE (NEGATIVE) Urine Bilirubin NEGATIVE (NEGATIVE) Urine Urobilinogen 0.2 (<2.0) EU/dL Ur Leukocyte Esterase NEGATIVE (NEGATIVE) Urine RBC NONE SEEN (0-2/HPF) Urine WBC 0-1 (0-5/HPF) Ur Epithelial Cells NOT SEEN (NONE-FEW) Urine Bacteria RARE (NEGATIVE) Med Orders - Current: Current Medications Hydromorphone HCl (Dilaudid) 1 mg IVPUSH Q2H PRN PRN Reason: Abdominal Pain Ondansetron HCl (Zofran) 8 mg IVPUSH Q8H PRN PRN Reason: Nausea/Vomiting Oxycodone/Acetaminophen (Percocet 325-5 Mg) 2 tab PO Q4H PRN PRN Reason: Abdominal Pain Last Admin: 06/03/17 07:40 Dose: 2 tab Sodium Chloride (Saline Flush) 10 ml FLUSH ASDIRECTED PRN PRN Reason: Keep Vein Open Sodium Chloride (Saline Flush) 2.5 ml FLUSH ASDIRECTED PRN PRN Reason: Keep Vein Open Discontinued Medications Bupivacaine HCl (Sensorcaine-Mpf 0.5%) Confirm Administered Dose 10 ml .ROUTE .STK-MED ONE Stop: 06/03/17 00:16 Diphenhydramine HCl (Benadryl) Confirm Administered Dose 50 mg .ROUTE .STK-MED ONE Stop: 06/03/17 00:13 Fentanyl (Sublimaze) Confirm Administered Dose 250 mcg .ROUTE .STK-MED ONE Stop: 06/03/17 00:08 Fentanyl (Sublimaze) 50 mcg IVPUSH Q5M PRN PRN Reason: Pain (severe 7-10) Stop: 06/03/17 05:00 Fentanyl (Sublimaze) Confirm Administered Dose 100 mcg .ROUTE .STK-MED ONE Stop: 06/03/17 01:18 Fentanyl (Sublimaze) Confirm Administered Dose 100 mcg .ROUTE .STK-MED ONE Stop: 06/03/17 02:13 Glycopyrrolate () Confirm Administered Dose 1 mg .ROUTE .STK-MED ONE Stop: 06/03/17 00:13 Sodium Chloride (Normal Saline) 1,000 mls @ 999 mls/hr IV STAT ONE Stop: 06/02/17 22:15 Last Admin: 06/02/17 21:34 Dose: 999 mls/hr Ciprofloxacin/Dextrose 400 mg/ (Premix) 200 mls @ 200 mls/hr IV ONETIME ONE Stop: 06/03/17 00:27 Last Admin: 06/02/17 23:37 Dose: 200 mls/hr Metronidazole 500 mg/ Premix 100 mls @ 100 mls/hr IV ONETIME ONE Stop: 06/03/17 00:08 Last Admin: 06/02/17 23:47 Dose: Not Given Lactated Ringer's (Ringers, Lactated) 1,000 mls @ 125 mls/hr IV ASDIRECTED KENNEDY Last Admin: 06/02/17 23:54 Dose: 125 mls/hr Levofloxacin/Dextrose 750 mg/ (Premix) 150 mls @ 100 mls/hr IV ONETIME ONE Stop: 06/03/17 01:18 Last Admin: 06/02/17 23:58 Dose: 100 mls/hr Iopamidol (Isovue Multipack-370 (76%)) 100 ml IVPUSH ONETIME STA Stop: 06/02/17 22:55 Last Admin: 06/02/17 23:02 Dose: 100 ml Ketorolac Tromethamine (Toradol) 30 mg IVPUSH ONETIME ONE Stop: 06/02/17 21:16 Last Admin: 06/02/17 21:37 Dose: 30 mg Ketorolac Tromethamine (Toradol) Confirm Administered Dose 30 mg .ROUTE .STK- MED ONE Stop: 06/03/17 00:13 Lidocaine (Xylocaine-Mpf 2%) Confirm Administered Dose 5 ml .ROUTE .STK-MED ONE Stop: 06/03/17 00:13 Midazolam HCl (Versed 1 Mg/Ml) Confirm Administered Dose 2 mg .ROUTE .STK-MED ONE Stop: 06/03/17 00:25 Morphine Sulfate (Morphine) 4 mg IVPUSH ONETIME ONE Stop: 06/02/17 21:55 Last Admin: 06/02/17 22:04 Dose: 4 mg Neostigmine Methylsulfate (Neostigmine) Confirm Administered Dose 5 mg .ROUTE .STK-MED ONE Stop: 06/03/17 00:13 Ondansetron HCl (Zofran) 8 mg IVPUSH ONETIME ONE Stop: 06/02/17 21:16 Last Admin: 06/02/17 21:35 Dose: 8 mg Ondansetron HCl (Zofran) Confirm Administered Dose 4 mg .ROUTE .STK-MED ONE Stop: 06/03/17 00:13 Propofol (Diprivan 20 Ml) Confirm Administered Dose 200 mg .ROUTE .STK-MED ONE Stop: 06/03/17 00:08 Propofol (Diprivan 20 Ml) Confirm Administered Dose 200 mg .ROUTE .STK-MED ONE Stop: 06/03/17 00:45 Rocuronium [place] (Zemuron) Confirm Administered Dose 100 mg .ROUTE .STK-MED ONE Stop: 06/03/17 00:13 Succinylcholine Chloride (Succinylcholine In Ns Pf) Confirm Administered Dose 200 mg .ROUTE .STK-MED ONE Stop: 06/03/17 00:13 - Exam Wound/Incisions: Dressing Dry and Intact, Drainage (scant) General: Alert, Oriented Lungs: Normal Respiratory Effort Cardiovascular: Regular Rate GI/Abdominal Exam: Normal Bowel Sounds, Soft, Non-Tender, No Distention. No: Rigid, Rebound, Tender Extremities: Normal Inspection Skin: Warm, Dry, Intact - Problem List & Annotations (1) Appendicitis SNOMED Code(s): 28788192 Code(s): K37 - UNSPECIFIED APPENDICITIS Status: Acute Current Visit: Yes Qualifiers: Appendicitis type: acute appendicitis Acute appendicitis type: unspecified acute appendicitis type Qualified Code(s): K35.80 - Unspecified acute appendicitis - Problem List Review Problem List Initiated/Reviewed/Updated: Yes - My Orders Last 24 Hours: Active Orders 24 hr Category Date Time Status Patient Status [ADT] Routine ADT 06/02/17 23:47 Active Antiembolic Devices [RC] PER UNIT ROUTINE Care 06/02/17 23:49 Active RT Incentive Spirometry [RC] ASDIRECTED Care 06/02/17 23:47 Active Ready for Discharge [RC] PER UNIT ROUTINE Care 06/03/17 10:27 Ordered Vital Signs [RC] Q4H Care 06/03/17 01:08 Active Regular Diet [DIET] Diet 06/03/17 Breakfast Active Abdomen Pelvis w Cont [CT] Stat Exams 06/02/17 21:15 Taken Acetaminophen/oxyCODONE [Percocet 325-5 MG] Med 06/03/17 02:51 Active 2 tab PO Q4H PRN HYDROmorphone [Dilaudid] Med 06/02/17 23:50 Active 1 mg IVPUSH Q2H PRN Ondansetron [Zofran] Med 06/03/17 02:52 Active 8 mg IVPUSH Q8H PRN Sodium Chloride 0.9% [Saline Flush] Med 06/02/17 23:47 Active 10 ml FLUSH ASDIRECTED PRN Sodium Chloride 0.9% [Saline Flush] Med 06/02/17 23:47 Active 2.5 ml FLUSH ASDIRECTED PRN Peripheral IV Insertion Adult [OM.PC] Routine Oth 06/02/17 23:47 Ordered Sequential Compression Device [OM.PC] Routine Oth 06/02/17 23:47 Ordered Resuscitation Status Routine Resus Stat 06/02/17 23:47 Ordered Medication Orders Hydromorphone HCl (Dilaudid) 1 mg IVPUSH Q2H PRN PRN Reason: Abdominal Pain Ondansetron HCl (Zofran) 8 mg IVPUSH Q8H PRN PRN Reason: Nausea/Vomiting Oxycodone/Acetaminophen (Percocet 325-5 Mg) 2 tab PO Q4H PRN PRN Reason: Abdominal Pain Last Admin: 06/03/17 07:40 Dose: 2 tab Sodium Chloride (Saline Flush) 10 ml FLUSH ASDIRECTED PRN PRN Reason: Keep Vein Open Sodium Chloride (Saline Flush) 2.5 ml FLUSH ASDIRECTED PRN PRN Reason: Keep Vein Open - Plan Plan (Free Text/Narrative):: Patient is doing well this am. Abdominal pain well controlled. Vitals stable overnight. No fever. Tolerated diet. Abdominal exam benign. Ok to discharge home.
--- NOTE | 2017-06-03 12:21 | PCM48HPAN ---
Post Anesthesia Note - EVALUATION WITHIN 48HRS OF ANESTHETIC Vital Signs in Normal Range: Yes Patient Participated in Evaluation: Yes Respiratory Function Stable: Yes Airway Patent: Yes Cardiovascular Function Stable: Yes Hydration Status Stable: Yes Pain Control Satisfactory: Yes Nausea and Vomiting Control Satisfactory: Yes Mental Status Recovered: Yes
--- NOTE | 2017-06-04 15:15 | CT ---
EXAM DATE: 06/02/17 PATIENT'S AGE: 31 Patient: [employer]ECT[employer] Facility: [place], [place] Site . Site : 1985 Study: CT Abdomen/Pelvis [id number] 10:45:06 PM Ordering Physician: Doctor Means Final Report: INDICATION: Abdominal pain TECHNIQUE: CT Abdomen and pelvis with i.v. contrast. Coronal and sagittal reformats were obtained. CONTRAST: 100 mL Isovue 370 COMPARISON: None FINDINGS: Lower chest: Unremarkable. Liver: Unremarkable. Spleen: Unremarkable. Pancreas: Unremarkable. Gallbladder: Unremarkable. Kidney: Unremarkable. No kidney or ureteral stones or obstruction seen. Adrenal: Unremarkable. GI tract: Unremarkable. The appendix is distended measuring 11 mm. There is moderate wall thickening and surrounding inflammatory changes noted with an appendicolith near the base of the appendix. No periappendiceal abscess is seen. Small fat containing umbilical hernia is noted. Vascular: Unremarkable. Lymph: Unremarkable. Peritoneum: Unremarkable. No pneumoperitoneum is seen. No significant ascites is noted. Pelvis: Unremarkable. Soft tissue: Unremarkable. Bones: Unremarkable for age. Miscellaneous: A small bone island is seen within the left femoral head. IMPRESSION: 1. The appendix is distended measuring 11 mm. There is moderate wall thickening and surrounding inflammatory changes noted with an appendicolith near the base of the appendix. No periappendiceal abscess is seen. These findings are consistent with acute appendicitis. Dictated by Toni Harvey MD @ 06/02/2017 11:08:48 PM Dictated by: Toni Harvey MD @ 06/02/2017 23:08:56 (Electronic Signature) Report Signed by Proxy. [facility]
== END 2017-06-03 12:23 | disposition home or self-care (01) ==
LOC: MW.ED 20:47 → MW.SDS 23:18 → MW.MS 06-03 00:51 → MW.SDS 06-03 12:23
PROVIDERS: ATTEND Surgery
DX: K35.80 Unspecified acute appendicitis (principal)
CPT/HCPCS: 36415; 44970; 74177; 80053; 81001; 82150; 83690; 85025; 88304; 96361; 96365; 96366; 96375; 99285; A9270; J0744; J1200; J1885; J1956; J2250; J2270; J2405; J3010; J7040; J7120; Q9967; 00840; 99283; J2704

== ENCOUNTER 2024-12-24 16:25 | Emergency (ER) | payer BC ==
[2024-12-24 18:10] LABS: APPEARANCE,URINE CLEAR; BILIRUBIN,URINE NEGATIVE (NEGATIVE); COLOR,URINE YELLOW; GLUCOSE,URINE NEGATIVE (NEGATIVE); KETONES,URINE NEGATIVE (NEGATIVE); LEUKOCYTE ESTERASE,URINE NEGATIVE (NEGATIVE); NITRITE,URINE NEGATIVE (NEGATIVE); OCCULT BLOOD,URINE NEGATIVE (NEGATIVE); PROTEIN,URINE NEGATIVE (NEGATIVE); UROBILINOGEN,URINE 0.2 EU/dL (<2.0)
[2024-12-24 18:23] LABS: BACTERIA,URINE RARE (NEGATIVE); EPITHELIAL CELLS,URINE RARE (NONE-FEW); RBC,URINE 0-1 (0-2/HPF); WBC,URINE 0-1 (0-5/HPF)
[2024-12-24 18:33] LABS: BASOPHILS ABSOLUTE AUTO 0.05 K/uL (0.00-0.20); BASOPHILS PERCENT AUTO 0.4 % (0.0-1.0); EOSINOPHILS ABSOLUTE AUTO 0.19 K/uL (0.00-0.45); EOSINOPHILS PERCENT AUTO 1.6 % (0.0-6.0); HEMOGLOBIN 15.7 g/dL (14.0-18.0); IMMATURE GRAN ABSOLUTE AUTO 0.06 K/uL (0.00-0.05); IMMATURE GRAN PERCENT AUTO 0.5 % (0.0-0.4); LYMPHOCYTES ABSOLUTE AUTO 2.45 K/uL (1.00-4.80); LYMPHOCYTES PERCENT AUTO 20.8 % (24.0-44.0); MEAN CORPUSCULAR HEMOGLOBIN 30.9 pg (28.0-32.0); MEAN CORPUSCULAR HGB CONC 35.7 g/dL (32.0-36.0); MEAN CORPUSCULAR VOLUME 86.6 fL (83.0-99.0); MEAN PLATELET VOLUME 10.4 fL (9.4-12.4); MONOCYTES ABSOLUTE AUTO 0.93 K/uL (0.00-0.80); MONOCYTES PERCENT AUTO 7.9 % (0.0-8.0); NEUTROPHILS ABSOLUTE AUTO 8.12 K/uL (1.80-7.70); NEUTROPHILS PERCENT AUTO 68.8 % (41.0-71.0); PLATELET COUNT,PLT 184 K/uL (150-400); RED BLOOD CELL COUNT 5.08 M/uL (4.52-5.90)
[2024-12-24 18:56] LABS: A/G RATIO 1.3 (0.9-1.6); ALBUMIN 4.3 g/dL (3.4-5.0); BILIRUBIN TOTAL 1.2 mg/dL (0.2-1.0); CALCIUM 9.1 mg/dL (8.5-10.1); CARBON DIOXIDE,CO2 27.5 mmol/L (21.0-32.0); CREATININE 1.1 mg/dL (0.8-1.3); EST CRCL DRUG DOSING (CG) 100.92 mL/min; PROTEIN TOTAL,TP 7.6 g/dL (6.4-8.2)
== END 2024-12-24 19:34 | disposition home or self-care (01) ==
LOC: MW.ED 16:25
DX: K42.9 Umbilical hernia without obstruction or gangrene (principal); Z88.8 Allergy status to other drugs, medicaments and biological substances; Z79.899 Other long term (current) drug therapy
CPT/HCPCS: 36415; 74150; 74150-26; 80053; 81001; 83690; 85025; 99283; 99284